=== PATIENT | female | born 1945 | race Caucasian/White ===

== ENCOUNTER → 2016-11-29 | Outpatient (CLI) | payer MEDICARE ==
[~2016-11-29] MED LIST: ALBUTEROL2.5 MG/NEB IN; ASPIRIN ADULT L81 M2 PO; ATIVAN GENERIC0.5 MG PO; CARTIA XT120 MG PO; FLONASE 50 MCG16 GM; HYDROCHLOROTH12.5 M1 PO; K-DUR 2020 MEQ PO; LISINOPRIL 20MG20 MG PO; LIVALO2 MG PO; MULTIVITAMIN1 TAB PO; NADOLOL20 MG PO; NASACORT A55 MCG/Act NS; NASOCORT; NASONEX0.05 MG/AC; PANTOPRAZOLE SO40 MG PO; PHENERGAN VC +120 ML PO; PRILOSEC20 M1 PO; PROMETH/CODEIN120 ML PO; PROMETHAZINE D240 ML PO; PROMETHAZINE-CODEINE PO; SIMVASTATIN10 MG PO; SUCRALFATE 1GM T1 GM NG; TEMAZEPAM15 MG PO; TOPIRAMATE 25MG25 MG PO; VOLTAREN GEL1% TP; ZYRTEC-D 12HR 51 TER PO
--- NOTE | 2016-12-01 12:04 | RADIOLOGY REPORT PS360 ---
DIG MAMM-SCREEN MELY W/CAD CAD Screening COMPARISON: Digital mammograms 08/21/2014 and 08/25/2015 INDICATION: There is a history of breast cancer patient maternal aunt. TECHNIQUE: Standard CC and MLO images were obtained. R2 CAD reviewed. FINDINGS: Mild to moderate scattered fibroglandular densities are seen throughout each breast. There is a stable benign-appearing calcification right breast. There is a possible new asymmetric density near the axillary tail right breast only seen on MLO projection. There are no suspicious microcalcifications. IMPRESSION: Fibrofatty parenchyma with possible new asymmetric density right breast recommend the patient return for an attempt at spot compression of this lesion no is very deep and 90 degrees lateral view and possibly ultrasound of this proves to be a true lesion. BI-RADS CATEGORY: 0_Incomplete: Need additional imaging RECOMMENDED FOLLOWUP: ADD ADDITIONAL IMAGING (A letter has been sent to the patient regarding results of the study.)
== END ==
LOC: RAD 10:56
DX: Z12.31 Encounter for screening mammogram for malignant neoplasm of breast (principal)
CPT/HCPCS: G0202

== ENCOUNTER → 2016-12-09 | Outpatient (CLI) | payer MEDICARE ==
--- NOTE | 2016-12-09 14:50 | RADIOLOGY REPORT PS360 ---
DIG MAMM-DX UNI RT W/AV W/CAD COMPARISON: Digital mammograms 11/29/2016 INDICATION: Evaluation of possible asymmetric density right breast TECHNIQUE: Spot compression MLO view and 90 degrees lateral view FINDINGS: The region noted possible asymmetric density is not seen on the spot compression MLO view. It is seen on the 90 degrees lateral view and is better seen than on the original mammogram and this appears to be a microcyst or possibly a tiny intramammary node. IMPRESSION: No suspicious abnormality seen on the additional views, recommend the patient continue with yearly screening mammography BI-RADS CATEGORY: 2_Benign RECOMMENDED FOLLOWUP: 12M 12 MONTH FOLLOW-UP (A letter has been sent to the patient regarding results of the study.)
== END ==
LOC: RAD 14:20
DX: R92.8 Other abnormal and inconclusive findings on diagnostic imaging of breast (principal)
CPT/HCPCS: G0206-RT

== ENCOUNTER → 2017-02-14 | Outpatient (CLI) | payer MEDICARE ==
--- NOTE | 2017-02-15 10:52 | RADIOLOGY REPORT PS360 ---
MRI-LOW EXT ANY JOINT W/O-LT HISTORY: Left knee pain, lateral meniscus tear, posterior pain with popping in the ascending TEAR OF LATERAL MENISCUS OF LEFT KNEE ORDERING PHYSICIAN: Cody Pulliam MD PATIENT AGE: 71 years COMPARISON: Radiograph of 09/29/2016 TECHNIQUE: Standard multiplanar multiecho sequences are performed without contrast. FINDINGS: There is some motion neck rotation artifact. The cruciate ligaments, collateral ligaments, patellar tendon, and quadriceps tendon appears intact. The medial meniscus appears intact. The anterior horn of the lateral meniscus is not visualized in its normal position. There is increased volume of what appears to represent the body and posterior horn of the lateral meniscus which could possibly be related to a flipped meniscus with the anterior horn resting at the body or posterior horn. There are moderate osteoarthritic changes involving all 3 compartments. There is increased T2 signal involving the lateral aspect of the proximal tibia with some cortical irregularity involving the lateral proximal tibia. There are osteoarthritic changes of the patellofemoral joint with thinning of the patellar cartilage and cortical irregularity involving the posterior surface of the patella with osteophyte formation. No obvious fracture. Increased T2 signal along the lateral aspect of the proximal tibia could be related to bone bruise or even an area of developing avascular necrosis. There is a small area of osteochondrosis involving the medial aspect of the lateral femoral condyle. IMPRESSION: 1. Nonvisualization of the anterior horn of the lateral meniscus in its normal position. Suspect a flipped meniscus with the meniscus located along the body and posterior horn of the lateral meniscus. 2. 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
== END ==
LOC: RAD 10:53
DX: S83.282A Other tear of lateral meniscus, current injury, left knee, initial encounter (principal)